=== PATIENT | female | born 1980 | race Hispanic/Latino ===

== ENCOUNTER 2024-08-20 12:42 | Emergency (ER) | payer OTHER ==
[2024-08-20] MEDS ORDERED: HYDROCODONE/APAP 7.5/325 MG TAB ONE (13:10)
--- NOTE | 2024-08-20 14:28 | RAD REPORT ---
EXAM: XR Knee Left 3 View HISTORY: BR MAIN PAIN Bed Name: 6 COMPARISON: None TECHNIQUE: 3 views of the left knee were obtained. FINDINGS: No knee effusion is seen. There is no evidence of acute fracture or dislocation. Mild dege nerative changes most notably along the patellofemoral compartment. No soft tissue swelling or other soft tissue abnormality is present. IMPRESSION: No acute osseous abnormality. Mild degenerative changes.
--- NOTE | 2024-08-20 14:30 | EDPHYS ---
Physician Documentation [facility] Name: Rhianna Maxwell Age: 44 yrs Sex: Female : 1980 Arrival Date: 08/20/2024 Time: 12:42 Bed 6 Private MD: ED Physician Maico iRvera HPI: 08/20 13:17 This 44 yrs old Female presents to ER via Ambulatory with complaints of left dr5 Knee Pain. 13:17 Onset: The symptoms/episode began/occurred 4 day(s) ago. Patient is a 44-year-old dr5 female with history of left knee pain that is been chronic. Patient reports that the last 4 days have been worse and hyper with the helping. Patient denies any new trauma or falls. Patient had knee brace on for comfort that has been helping.. Historical: - Allergies: 12:56 No Known Allergies; ph - Home Meds: 12:56 None [Active]; ph - PMHx: 12:56 None; ph - Immunization history:: Adult Immunizations unknown. - Infectious Disease History:: Denies. - Social history:: Smoking status: Patient denies any tobacco usage or history of. ROS: 13:17 Constitutional: as per hpi dr5 Exam: 13:17 Constitutional: This is a well developed, well nourished patient who is awake, alert, dr5 and in no acute distress. Head/Face: Normocephalic, atraumatic. ENT: Nares patent. No nasal discharge, no septal abnormalities noted. Tympanic membranes are normal and external auditory canals are clear. Oropharynx with no redness, swelling, or masses, exudates, or evidence of obstruction, uvula midline. Mucous membranes moist. Neck: Trachea midline, no thyromegaly or masses palpated, and no cervical lymphadenopathy. Supple, full range of motion without nuchal rigidity, or vertebral point tenderness. No Meningismus. Chest/axilla: Normal chest wall appearance and motion. Nontender with no deformity. No lesions are appreciated. Cardiovascular: Regular rate and rhythm with a normal S1 and S2. Normal PMI, no JVD. No pulse deficits. Respiratory: Lungs have equal breath sounds bilaterally, clear to auscultation. No rales, rhonchi or wheezes noted. No increased work of breathing, no retractions or nasal flaring. Back: No spinal tenderness. No costovertebral tenderness. Full range of motion. Skin: Warm, dry with normal turgor. Normal color with no rashes, no lesions, and no evidence of cellulitis. Neuro: Awake and alert, GCS 15, oriented to person, place, time, and situation. Cranial nerves II-XII grossly intact. Motor strength 5/5 in all extremities. Sensory grossly intact. Cerebellar exam normal. Normal gait. 13:17 Musculoskeletal/extremity: Extremities: noted in the left knee: pain, ROM: no acute changes, Circulation is intact in all extremities. Sensation intact. Joints: Weight bearing: able to fully bear weight, without difficulty, Vital Signs: 12:56 BP 121 / 71; Pulse 88; Resp 18; Temp 97.8; Pulse Ox 98% on R/A; Weight 85.73 kg; Height ph 5 ft. 0 in. ; 14:47 BP 131 / 69; Pulse 78; Resp 16; Pulse Ox 98% ; bp 12:56 Body Mass Index 36.91 (85.73 kg, 152.4 cm) ph Procedures: 15:02 Splinting: Splint applied to right knee using Knee Brace. applied by nurse. post dr5 reduction film - Examined by me, post splint application: neurovascular intact, 2+ distal pulses palpable, brisk capillary refill noted, Patient tolerated well. MDM: 12:57 Medical Screening Exam initiated dr5 15:02 Differential diagnosis: abrasion, contusion, fracture. Data reviewed: vital signs, dr5 nurses notes. Care significantly affected by the following Social Determinants of Health: Poor access to healthcare and/or lack of insurance, Poor access to transportation, Problems related to employment. Counseling: I had a detailed discussion with the patient and/or guardian regarding the historical points, exam findings, and any diagnostic results supporting the discharge/admit diagnosis, the presence of at least one elevated blood pressure reading (>120/80) during this emergency department visit, radiology results, the need for outpatient follow up, for definitive care, a family practitioner, a orthopedic surgeon, to return to the emergency department if symptoms worsen or persist or if there are any questions or concerns that arise at home. Medication response: [place]. Response to treatment: the patient's symptoms have markedly improved after treatment. ED course: CD created for patient and x-ray report printed and placed in discharge packet. Recommended patient follow with primary care doctor or orthopedics next week for continued care and possible MRI. Recommended add Tylenol regimen with ibuprofen. Only take tramadol as needed for breakthrough pain. All questions answered. Patient ambulated out of the ER without difficulty.. 08/20 12:57 Order name: Knee Left 3 View XRAY; Complete Time: 14:29 dr5 08/20 13:56 Order name: Knee Immobilizer: Large Knee Brace; Complete Time: 14:02 dr5 Administered Medications: 13:13 Drug: Hydrocodone-Acetaminophen PO (7.5 mg-325 mg) 2 tabs PO once Route: PO; bp 14:02 Follow up: Response: No adverse reaction ph Disposition Summary: 08/20/24 14:29 Discharge Ordered Notes: Location: Home dr5 Condition: Stable dr5 Diagnosis - Pain in right knee dr5 Followup: dr5 - With: Emergency Department - When: As needed - Reason: Worsening of condition Followup: dr5 - With: Private Physician - When: 1 - 2 days - Reason: Recheck today's complaints, Continuance of care, Re-evaluation by your physician Discharge Instructions: - Discharge Summary Sheet dr5 - How to Use a Knee Brace dr5 - Acute Knee Pain, Adult dr5 Forms: - Medication Reconciliation Form dr5 - Antibiotic Education dr5 - Prescription Opioid Use dr5 - Patient Portal Instructions dr5 - Leadership Thank You Letter dr5 Prescriptions: - Ibuprofen 800 mg Oral Tablet - take 1 tablet ORAL route every 8 hours As needed take with food; 30 tablet; dr5 Refills: 0, Product Selection Permitted - Tramadol 50 mg Oral Tablet - take 1 tablet ORAL route every 8 hours as needed; 12 tablet; Refills: 0, dr5 Product Selection Permitted Signatures: Dispatcher [employer] Jayla Shannon RN RN Darren Potter, RN RN Kye Birmingham, ARTS THERAPIST-C ARTS THERAPIST-Cdr5
--- NOTE | 2024-08-20 14:30 | ER ---
Nurse's Notes [facility] Name: Rhianna Maxwell Age: 44 yrs Sex: Female : 1980 Arrival Date: 08/20/2024 Time: 12:42 Bed 6 Private MD: Diagnosis: Pain in right knee Presentation: 08/20 12:56 Chief complaint: Patient states: L knee pain x 4 days. Coronavirus screen: Vaccine ph status: Patient reports being unvaccinated. Ebola Screen: No symptoms or risks identified at this time. Initial Sepsis Screen: Does the patient meet any 2 criteria? No. Patient's initial sepsis screen is negative. Does the patient have a suspected source of infection? No. Patient's initial sepsis screen is negative. Risk Assessment: Do you want to hurt yourself or someone else? Patient reports no desire to harm self or others. Onset of symptoms was August 20, 2024. 12:56 Method Of Arrival: Ambulatory ph 12:56 Acuity: GIL 4 ph Triage Assessment: 12:57 General: Appears in no apparent distress. comfortable, Behavior is calm, cooperative. ph Pain: Complains of pain in left knee. Neuro: Level of Consciousness is awake, alert, obeys commands, Oriented to person, place, time, situation. Derm: Skin is pink, warm \T\ dry. Historical: - Allergies: 12:56 No Known Allergies; ph - Home Meds: 12:56 None [Active]; ph - PMHx: 12:56 None; ph - Immunization history:: Adult Immunizations unknown. - Infectious Disease History:: Denies. - Social history:: Smoking status: Patient denies any tobacco usage or history of. Screenin:[facility] ED Fall Risk Assessment (Adult) History of falling in the last 3 months, ph including since admission No falls in past 3 months (0 pts) Confusion or Disorientation No (0 pts) Intoxicated or Sedated No (0 pts) Impaired Gait No (0 pts) Mobility Assist Device Used No (0 pt) Altered Elimination No (0 pt) Score/Fall Risk Level 0 - 2 = Low Risk Oriented to surroundings, Maintained a safe environment, Provided non-skid footwear, Hourly rounding (assess needs \T\ fall precautionary measures) done. Abuse screen: Denies threats or abuse. Denies injuries from another. Nutritional screening: No deficits noted. Tuberculosis screening: No symptoms or risk factors identified. Assessment: 12:58 General: SEE TRIAGE ASSESSMENT. ph 14:04 Reassessment: Patient appears in no apparent distress at this time. Patient and/or ph family updated on plan of care and expected duration. Pain level reassessed. Patient is alert, oriented x 3, equal unlabored respirations, skin warm/dry/pink. Vital Signs: 12:56 BP 121 / 71; Pulse 88; Resp 18; Temp 97.8; Pulse Ox 98% on R/A; Weight 85.73 kg; Height ph 5 ft. 0 in. ; 14:47 BP 131 / 69; Pulse 78; Resp 16; Pulse Ox 98% ; bp 12:56 Body Mass Index 36.91 (85.73 kg, 152.4 cm) ph ED Course: 12:45 Patient arrived in ED. al6 12:48 [facility] Higgins [facility]C [facility] 12:48 Maico Rivera MD is Attending Physician. dr5 12:56 Triage completed. ph 12:57 Arm band placed on Patient placed in an exam room, on a stretcher, on pulse oximetry. ph 12:58 Patient has correct armband on for positive identification. Bed in low position. Call ph light in reach. Side rails up X 1. Pulse ox on. NIBP on. Door closed. Noise minimized. 12:59 Jayla Santoro, RN is Primary Nurse. ph 13:44 Knee Left 3 View XRAY In Process Unspecified. EDMS 14:47 No provider procedures requiring assistance completed. Patient did not have IV access bp during this emergency room visit. Administered Medications: 13:13 Drug: Hydrocodone-Acetaminophen PO (7.5 mg-325 mg) 2 tabs PO once Route: PO; bp 14:02 Follow up: Response: No adverse reaction ph Medication: 12:57 VIS not applicable for this client. ph Outcome: 14:29 Discharge ordered by . dr5 14:47 Discharged to home ambulatory, with family, bp 14:47 Condition: stable 14:47 Discharge instructions given to patient, family, Instructed on discharge instructions, follow up and referral plans. medication usage, Demonstrated understanding of instructions, follow-up care, medications, Prescriptions given X 2, 14:48 Patient left the ED. bp Signatures: Dispatcher [employer] EDMS Yvan Jayla, YURIY RN ph Darren Andrade RN RN bp Ronaldo, Kye, SPRAY GUNNER-C SPRAY GUNNER-Cdr5 Ingrid Morrissey
[2024-08-20 14:55] VITALS: TEMP 97.8; O2SAT 98
[2024-08-20 14:57] VITALS: BP 131/69
== END 2024-08-20 14:48 | disposition home or self-care (01) ==
LOC: ER 12:42
DX: M25.562 Pain in left knee (principal)
CPT/HCPCS: 99283

== ENCOUNTER 2024-10-02 19:53 | Emergency (ER) | payer OTHER ==
[2024-10-02 20:39] LABS: Absolute Basophils 0.1 K/uL (0-0.5); Absolute Eosinophils 0.1 K/uL (0-0.5); Absolute Lymphocytes (CBC) 3.1 K/uL (0.7-4.9); Absolute Monocytes 0.6 K/uL (0.1-1.3); Absolute Neutrophil 4.9 K/uL (1.8-8.0); Eosinophils % 1.4 % (0-4.4); Hematocrit 40.4 % (36.0-45.0); Lymphocytes % 34.7 % (15.3-44.8); MCH 30.8 pg (27.0-35.0); MCHC 34.8 g/dL (32.0-36.0); MCV 88.6 fL (80-100); MPV 7.8 fL (7.6-11.3); Monocytes % 7.2 % (3.3-12.3); Neutrophils % 55.7 % (41.7-73.7); Nucleated Red Blood Cells % 0.1 % (0-0); Platelets 259 thou/uL (152-406); RBC Red Blood Cell Count 4.56 M/uL (3.86-4.86); Red Cell Distribution Width 13.2 % (12.1-15.2)
[2024-10-02] MEDS ORDERED: METOCLOPRAMIDE 10 MG/2mL INJ ONE (20:53)
[2024-10-02] MEDS ORDERED: ONDANSETRON 4 MG/2 ML VIAL ONE (20:53)
[2024-10-02] MEDS ORDERED: DICYCLOMINE HCL 10 MG CAP ONE (20:53)
[2024-10-02] MEDS ORDERED: KETOROLAC 30 MG/ML INJ ONE (20:53)
[2024-10-02] MEDS ORDERED: NA CHLORIDE 0.9% 50 ML ONE ×2 (20:53→23:01)
[2024-10-02] MEDS ORDERED: NA CHLORIDE 0.9% 2,000 ML ONE (20:54)
[2024-10-02 20:59] LABS: Albumin 3.6 g/dL (3.4-5.0); Albumin/Globulin Ratio 0.8 (1.1-1.8); Anion Gap 9.6 mEq/L (5.0-15.0); Bilirubin Total 0.4 mg/dL (0.2-1.0); Globulin 4.3 g/dL (2.3-3.5); Potassium 3.6 mEq/L (3.5-5.1); Protein, Total 7.9 g/dL (6.4-8.2)
[2024-10-02 21:12] LABS: Specific Gravity 1.027 (1.005-1.030)
[2024-10-02 21:13] LABS: Specific Gravity 1.027 (1.005-1.030); Urine Bacteria <20 /HPF (<20); Urine Bilirubin NEGATIVE (Negative); Urine Blood Negative (Negative); Urine Clarity Extremely Turbid (Clear); Urine Color Yellow (Yellow); Urine Crystals Unidentified Few /HPF (None Seen); Urine Glucose NEGATIVE (Negative); Urine Ketones NEGATIVE (Negative); Urine Micro Reflex YN NO BILL MICROSCOPIC; Urine Mucus 4+ /HPF (None Seen); Urine Nitrite NEGATIVE (Negative); Urine Protein TRACE (Negative); Urine Urobilinogen 2+ (Normal); Urine pH 6.5 (5.0-7.0)
--- NOTE | 2024-10-02 22:57 | EDPHYS ---
Physician Documentation [facility] Name: Rhianna Maxwell Age: 44 yrs Sex: Female : 1980 Arrival Date: 10/02/2024 Time: 19:53 Bed 5 Private MD: ED Physician Farzad Arreola HPI: 10/02 20:05 This 44 yrs old Female presents to ER via Unassigned with complaints of sp4 Nausea/Vomiting/Diarrhea, Headache. 20:15 44-year-old female presents with acute onset of nausea vomiting headache and abdominal sp4 discomfort. This started this morning. Patient reported multiple episodes of vomiting denied diarrhea. No history of prior abdominal surgery no history of medical allergies patient denied fever. Reporting feeling unwell overall. SLEDGER: 20:43 LMP 09/13/2024, unknown vc1 Historical: - Allergies: 20:15 No Known Allergies; vc1 - Home Meds: 20:15 None [Active]; vc1 - PMHx: 20:15 None; vc1 - PSHx: 20:15 None; vc1 - Immunization history:: Client reports receiving the 2nd dose of the Covid vaccine, Flu vaccine is up to date. - Infectious Disease History:: Denies. - Family history:: not pertinent. - Social history:: Smoking status: Patient denies any tobacco usage or history of. ROS: 20:16 Constitutional: Negative for fever, chills, and weight loss, positive nausea, positive sp4 vomiting, positive abdominal pain, positive for headache 20:16 All other systems are negative, Exam: 20:16 Constitutional: This is a well developed, well nourished patient who is awake, alert, sp4 and in no acute distress. Head/Face: Normocephalic, atraumatic. Eyes: Pupils equal round and reactive to light, extra-ocular motions intact. Lids and lashes normal. Conjunctiva and sclera are not injected. Cornea within normal limits. Periorbital areas with no swelling, redness, or edema. ENT: Nares patent. No nasal discharge, no septal abnormalities noted. Tympanic membranes are normal and external auditory canals are clear. Oropharynx with no redness, swelling, or masses, exudates, or evidence of obstruction, uvula midline. Mucous membranes moist. Neck: Trachea midline, no thyromegaly or masses palpated, and no cervical lymphadenopathy. Supple, full range of motion without nuchal rigidity, or vertebral point tenderness. Chest/axilla: Normal chest wall appearance and motion. Nontender with no deformity. No lesions are appreciated. Cardiovascular: Regular rate and rhythm with a normal S1 and S2. No gallops, murmurs, or rubs. Normal PMI, no JVD. No pulse deficits. Respiratory: Lungs have equal breath sounds bilaterally, clear to auscultation and percussion. No rales, rhonchi or wheezes noted. No increased work of breathing, no retractions or nasal flaring. Abdomen/GI: Soft, with normal bowel sounds. No distension or tympany. No guarding or rebound. No evidence of tenderness throughout. Back: No spinal tenderness. No costovertebral tenderness. Skin: Warm, dry with normal turgor. Normal color with no rashes, no lesions, and no evidence of cellulitis. MS/ Extremity: Pulses equal, no cyanosis. Neurovascular intact. Full, normal range of motion. Neuro: Awake and alert, GCS 15, oriented to person, place, time, and situation. Cranial nerves II-XII grossly intact. Motor strength 5/5 in all extremities. Sensory grossly intact. Psych: Awake, alert, with orientation to person, place and time. Behavior, mood, and affect are within normal limits Vital Signs: 20:25 BP 123 / 66; Pulse 83; Resp 16; Temp 98.1; Pulse Ox 98% ; Weight 95.25 kg; Height 4 ft. vc1 11 in. ; Pain 6/10; 21:14 BP 120 / 80; Pulse 76; Resp 16; Pulse Ox 97% ; al5 22:54 BP 113 / 69; Pulse 79; Resp 16; Pulse Ox 98% on R/A; al5 23:06 BP 107 / 73; Pulse 67; Resp 18; Pulse Ox 97% ; al5 20:25 Body Mass Index 42.41 (95.25 kg, 149.86 cm) vc1 20:25 Pain Scale: Adult vc1 [place] Coma Score: 20:16 Eye Response: spontaneous(4). Motor Response: obeys commands(6). Verbal Response: sp4 oriented(5). Total: 15. MDM: 20:07 Medical Screening Exam initiated sp4 20:16 Differential diagnosis: Nonspecific abd pain, gastritis, cholecystitis, diverticulitis, sp4 viral gastroenteritis, gastroenteritis. Data reviewed: vital signs, nurses notes, lab test result(s). Consideration of Admission/Observation Escalation of care including admission/observation considered. 10/02 20:07 Order name: CBC with Diff; Complete Time: 22:46 sp4 10/02 20:07 Order name: CMP; Complete Time: 22:46 sp4 10/02 20:07 Order name: Lipase; Complete Time: 22:46 sp4 10/02 20:14 Order name: Urinalysis W/Microscopic; Complete Time: 22:46 sp4 10/02 20:14 Order name: Test, Urine; Complete Time: 22:46 sp4 10/02 21:18 Order name: Urine Culture [facility] 10/02 20:07 Order name: IV Saline Lock; Complete Time: 20:32 sp4 10/02 20:07 Order name: Labs collected and sent; Complete Time: 20:32 sp4 Administered Medications: 21:05 Drug: Ondansetron IVP 8 mg IVP once; over 2 minutes Route: IVP; Site: right antecubital;vc1 22:49 Follow up: Response: No adverse reaction; Nausea is decreased al5 21:05 Drug: NS 0.9% IV 1000 ml IV at 1 bolus Per protocol; to be given as a bolus over 60 vc1 minutes Route: IV; Rate: 1 bolus; Site: right antecubital; 23:07 Follow up: Response: No adverse reaction; IV Status: Completed infusion; IV Intake: al5 1000ml 21:05 Drug: Ketorolac IVP 30 mg IVP once Route: IVP; Site: right antecubital; vc1 22:48 Follow up: Response: No adverse reaction; Pain is decreased al5 21:05 Drug: NS 0.9% IV 1000 ml IV at 1 bolus Per protocol; to be given as a bolus over 60 vc1 minutes Route: IV; Rate: 1 bolus; Site: right antecubital; 23:07 Follow up: Response: No adverse reaction; IV Status: Completed infusion; IV Intake: al5 1000ml 21:05 Drug: metoCLOPramide IVP 10 mg IVP once; over 1 to 2 minutes Route: IVP; Site: right vc1 antecubital; 22:48 Follow up: Response: No adverse reaction; Nausea is decreased al5 21:05 Drug: Dicyclomine PO 20 mg PO once Route: PO; vc1 22:48 Follow up: Response: No adverse reaction; Pain is decreased al5 23:06 Drug: Rocephin - Rocephin (cefTRIAXone) IVPB 1 grams IVPB once over 30 mins; (mix in 50 al5 mL NS) Route: IVPB; Infused Over: 30 mins; Site: right antecubital; 23:18 Follow up: Response: No adverse reaction; IV Status: Completed infusion; IV Intake: [id number] Disposition Summary: 10/02/24 22:56 Discharge Ordered Notes: Location: Home sp4 Problem: new sp4 Symptoms: have improved sp4 Condition: Stable sp4 Diagnosis - Acute viral gastroenteritis, acute urinary tract infection, acute cystitis. sp4 Followup: sp4 - With: Private Physician - When: 7 - 10 days - Reason: Recheck today's complaints Discharge Instructions: - Discharge Summary Sheet sp4 - Viral Gastroenteritis, Adult, [id number] sp4 - Urinary Tract Infection, Adult, [id number] sp4 Forms: - Patient Portal Instructions sp4 Prescriptions: - Cephalexin 500 mg Oral Capsule - take 1 capsule ORAL route every 12 hours for 10 days; 20 capsule; Refills: 0, sp4 Product Selection Permitted - Ibuprofen 800 mg Oral Tablet - take 1 tablet ORAL route every 8 hours As needed take with food; 30 tablet; sp4 Refills: 0, Product Selection Permitted - dicyclomine 20 mg Oral tablet - take 1 tablet ORAL route every 6 hours PRN abdominal pain; 30 tablet; Refills: sp4 0, Product Selection Permitted - ondansetron 8 mg Oral Tablet,disintegrating - take 1 tablet ORAL route every 8 hours PRN nausea; 30 tablet; Refills: 0, sp4 Product Selection Permitted Signatures: Dispatcher [employer] Katerine West RN RN vc1 Farzad Arreola MD MD sp4 Karrie Juarez RN RN al5
--- NOTE | 2024-10-02 22:57 | ER ---
Nurse's Notes [facility] Name: Rhianna Maxwell Age: 44 yrs Sex: Female : 1980 Arrival Date: 10/02/2024 Time: 19:53 Bed 5 Private MD: Diagnosis: Acute viral gastroenteritis, acute urinary tract infection, acute cystitis. Presentation: 10/02 20:25 Chief complaint: Patient states: stomach ache, vomiting and headache start started vc1 today. Coronavirus screen: Client denies travel out of the [place] in the last 14 days. At this time, the client does not indicate any symptoms associated with coronavirus-19. Ebola Screen: Patient negative for fever greater than or equal to 101.5 degrees Fahrenheit, and additional compatible Ebola Virus Disease symptoms Patient denies exposure to infectious person. Patient denies travel to an Ebola-affected area in the 21 days before illness onset. No symptoms or risks identified at this time. Initial Sepsis Screen: Does the patient meet any 2 criteria? No. Patient's initial sepsis screen is negative. Does the patient have a suspected source of infection? No. Patient's initial sepsis screen is negative. Risk Assessment: Do you want to hurt yourself or someone else? Patient reports no desire to harm self or others. Onset of symptoms was October 02, 2024. 20:25 Method Of Arrival: Ambulatory vc1 20:25 Acuity: GIL 3 vc1 Triage Assessment: 20:15 General: Appears in no apparent distress. uncomfortable, ill, obese, well groomed, vc1 Behavior is calm, cooperative, appropriate for age. Pain: Complains of pain in right voodoo, left voodoo, left occipital area, right occipital area and umbilical area Pain does not radiate. Pain currently is 6 out of 10 on a pain scale. Quality of pain is described as pressure, sharp, Also complains of nausea, vomiting. EENT: No deficits noted. No signs and/or symptoms were reported regarding the EENT system. Neuro: Level of Consciousness is awake, alert, obeys commands, Oriented to person, place, time, situation, Appropriate for age. Cardiovascular: Heart tones S1 S2 present Capillary refill < 3 seconds Patient's skin is warm and dry. Respiratory: Airway is patent Respiratory effort is even, unlabored, Respiratory pattern is regular, symmetrical, Breath sounds are clear bilaterally. GI: Reports epigastric pain, intolerance of fluids, intolerance of food, nausea, vomiting. GI: Abdomen is round non-distended, Abd is soft and non tender. : No deficits noted. No signs and/or symptoms were reported regarding the genitourinary system. Derm: Skin is intact, is healthy with good turgor, Skin is dry, Skin is normal, Skin temperature is warm. Musculoskeletal: Circulation, motion, and sensation intact. Range of motion: intact in all extremities. 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 - Infectious Disease History:: Denies. - Family history:: not pertinent. - Social history:: Smoking status: Patient denies any tobacco usage or history of. Screenin:15 [facility] ED Fall Risk Assessment (Adult) History of falling in the last 3 months, vc1 including since admission No falls in past 3 months (0 pts) Confusion or Disorientation No (0 pts) Intoxicated or Sedated No (0 pts) Impaired Gait No (0 pts) Mobility Assist Device Used No (0 pt) Altered Elimination No (0 pt) Score/Fall Risk Level 0 - 2 = Low Risk Oriented to surroundings, Maintained a safe environment, Educated pt \T\ family on fall prevention, incl call for assistance when getting out of bed, Hourly rounding (assess needs \T\ fall precautionary measures) done. Abuse screen: Denies threats or abuse. Nutritional screening: No deficits noted. Tuberculosis screening: No symptoms or risk factors identified. Assessment: 21:11 General: Appears in no apparent distress. uncomfortable, Behavior is calm, cooperative. al5 Pain: Complains of pain in head and abdomen. Neuro: Level of Consciousness is awake, alert, obeys commands, Oriented to person, place, time, situation. Cardiovascular: Capillary refill < 3 seconds Patient's skin is warm and dry. Respiratory: Airway is patent Respiratory effort is even, unlabored, Respiratory pattern is regular, symmetrical. GI: Abdomen is non-distended, obese, Reports lower abdominal pain, upper abdominal pain, diarrhea, nausea, vomiting. : No signs and/or symptoms were reported regarding the genitourinary system. EENT: No signs and/or symptoms were reported regarding the EENT system. Derm: Skin is intact, is healthy with good turgor, Skin is pink, warm \T\ dry. normal. Musculoskeletal: No signs and/or symptoms reported regarding the musculoskeletal system. 22:49 Reassessment: Patient appears in no apparent distress at this time. Patient and/or al5 family updated on plan of care and expected duration. Pain level reassessed. Patient is alert, oriented x 3, equal unlabored respirations, skin warm/dry/pink. Patient states feeling better. Patient states symptoms have improved. Vital Signs: 20:25 BP 123 / 66; Pulse 83; Resp 16; Temp 98.1; Pulse Ox 98% ; Weight 95.25 kg; Height 4 ft. vc1 11 in. ; Pain 6/10; 21:14 BP 120 / 80; Pulse 76; Resp 16; Pulse Ox 97% ; al5 22:54 BP 113 / 69; Pulse 79; Resp 16; Pulse Ox 98% on R/A; al5 23:06 BP 107 / 73; Pulse 67; Resp 18; Pulse Ox 97% ; al5 20:25 Body Mass Index 42.41 (95.25 kg, 149.86 cm) vc1 20:25 Pain Scale: Adult vc1 [place] Coma Score: 20:16 Eye Response: spontaneous(4). Motor Response: obeys commands(6). Verbal Response: sp4 oriented(5). Total: 15. ED Course: 19:56 Patient arrived in ED. gm2 20:05 Farzad Arreola MD is Attending Physician. sp4 20:15 Arm band placed on right wrist. vc1 20:32 CBC with Diff Sent. vk 20:32 CMP Sent. vk 20:32 Lipase Sent. vk 20:32 Initial lab(s) drawn, by ok, sent to lab. Inserted saline lock: 20 gauge in right vk antecubital area, using aseptic technique. Blood collected. Flushed with 10 mL NS. 20:38 Triage completed. vc1 20:49 Tommy Xie, RN is Primary Nurse. bm8 21:05 Test, Urine Sent. oe 21:05 Urinalysis W/Microscopic Sent. oe 21:12 No provider procedures requiring assistance completed. al5 21:12 Patient has correct armband on for positive identification. Bed in low position. Call al5 light in reach. Side rails up X 1. Provided Education on: plan of care. 23:18 IV discontinued, intact, bleeding controlled, No redness/swelling at site. Pressure al5 dressing applied. Administered Medications: 21:05 Drug: Ondansetron IVP 8 mg IVP once; over 2 minutes Route: IVP; Site: right antecubital;vc1 22:49 Follow up: Response: No adverse reaction; Nausea is decreased al5 21:05 Drug: NS 0.9% IV 1000 ml IV at 1 bolus Per protocol; to be given as a bolus over 60 vc1 minutes Route: IV; Rate: 1 bolus; Site: right antecubital; 23:07 Follow up: Response: No adverse reaction; IV Status: Completed infusion; IV Intake: al5 1000ml 21:05 Drug: Ketorolac IVP 30 mg IVP once Route: IVP; Site: right antecubital; vc1 22:48 Follow up: Response: No adverse reaction; Pain is decreased al5 21:05 Drug: NS 0.9% IV 1000 ml IV at 1 bolus Per protocol; to be given as a bolus over 60 vc1 minutes Route: IV; Rate: 1 bolus; Site: right antecubital; 23:07 Follow up: Response: No adverse reaction; IV Status: Completed infusion; IV Intake: al5 1000ml 21:05 Drug: metoCLOPramide IVP 10 mg IVP once; over 1 to 2 minutes Route: IVP; Site: right vc1 antecubital; 22:48 Follow up: Response: No adverse reaction; Nausea is decreased al5 21:05 Drug: Dicyclomine PO 20 mg PO once Route: PO; vc1 22:48 Follow up: Response: No adverse reaction; Pain is decreased al5 23:06 Drug: Rocephin - Rocephin (cefTRIAXone) IVPB 1 grams IVPB once over 30 mins; (mix in 50 al5 mL NS) Route: IVPB; Infused Over: 30 mins; Site: right antecubital; 23:18 Follow up: Response: No adverse reaction; IV Status: Completed infusion; IV Intake: [id number] Medication: 20:43 VIS not applicable for this client. vc1 Intake: 23:07 IV: 1000ml; Total: 1000ml. al5 23:07 IV: 1000ml; Total: 2000ml. al5 23:18 IV: 50ml; Total: 2050ml. al5 Outcome: 22:56 Discharge ordered by . sp4 23:18 Discharged to home ambulatory, with family, with significant other, al5 23:18 Condition: good 23:18 Discharge instructions given to patient, Instructed on discharge instructions, follow up and referral plans. medication usage, Demonstrated understanding of instructions, follow-up care, medications, Prescriptions given X 4, 23:18 Patient left the ED. al5 Signatures: Guanakito Foley Vanessa, RN RN vc1 Farzad Arreola MD MD sp4 Xiao Nance gmKrys Mckeon Brad RN RN bm8 Karrie Juarez RN RN al5
[2024-10-02] MEDS ORDERED: CEFTRIAXONE 1000 MG/VIAL ONE (23:01)
[2024-10-03 23:26] VITALS: TEMP 98.1
[2024-10-03 23:31] VITALS: BP 107/73; O2SAT 97
== END 2024-10-02 23:18 | disposition home or self-care (01) ==
LOC: ER 19:53
DX: A08.4 Viral intestinal infection, unspecified (principal); N39.0 Urinary tract infection, site not specified
CPT/HCPCS: 96361; 87088; 85025; 81001; 87086; 36415; 81025; 83690; 80053; 96375; 96374; 99284; J2765; J2405; J7030; J0696